=== PATIENT | female | born 1965 | race American Indian/Alaskan Native ===

== ENCOUNTER 2017-05-15 15:03 | Outpatient (CLI) | payer BC ==
--- NOTE | 2017-06-05 12:11 | MMO ---
BILATERAL SCREENING MAMMOGRAMS: Date: 05/15/17 There are no prior exams available. This is a baseline study for this institution. This patient's mammogram was interpreted with the assistance of computer-aided detection. FINDINGS: Heterogeneously dense glandular pattern. There is an area of asymmetric density in the posterior righ t breast seen on MLO view only. Recommend additional right breast exam with diagnostic study to furth er evaluate. IMPRESSION: BIRADS 0: Incomplete: Need Additional Imaging Evaluation and/or Prior Mammograms for Comparison Further imaging of right breast required. The facility will notify the patient of the need for additional imaging services. POS: [facility]
== END 2017-05-15 15:04 | disposition home or self-care (01) ==
LOC: MAMMO 15:03
PROVIDERS: ATTEND Obstetrics & Gynecology
DX: Z12.31 Encounter for screening mammogram for malignant neoplasm of breast (principal)
CPT/HCPCS: 77067; G0202

== ENCOUNTER 2017-05-24 16:16 | Outpatient (CLI) | payer BC ==
[2017-05-24 17:16] LABS: Hematocrit 40.7 % (36.0-47.0); Mean Platelet Volume 7.8 fL (7.4-10.4); Red Blood Cell (RBC) Count 4.51 mill/uL (4.20-5.40); White Blood Cell (WBC) Count 8.2 thou/uL (4.8-10.8)
== END 2017-05-24 16:17 | disposition home or self-care (01) ==
LOC: LABBT 16:16
PROVIDERS: ATTEND Obstetrics & Gynecology
DX: N95.0 Postmenopausal bleeding (principal); D25.9 Leiomyoma of uterus, unspecified
CPT/HCPCS: 85027; 86850; 86900; 86901

== ENCOUNTER 2017-05-24 16:30 | Inpatient (IN) | payer BC ==
--- NOTE | 2017-05-24 06:00 | HP ---
PREOPERATIVE DIAGNOSIS: Abnormal uterine bleeding. PLANNED PROCEDURE: Robotic assisted total laparoscopic hysterectomy with bilateral salpingectomy. HISTORY OF PRESENT ILLNESS: Ms. Cammy Linder is a 52-year-old G2, P2 with a history of anemia, ir regular bleeding with failed medical management. The patient was first seen in our office in of this year with Dr. Dupont with a noted anemia with a hemoglobin of 7.5. The patient has a long h istory of menorrhagia and was at one time considering an ablation versus hysterectomy with a gynecolo gist in [place]. The patient has had a complicated social situation over the last year, has f rom her and lives here now in [place] with her daughter and therefore came to our off ice for continued management of her menstrual concerns. The patient reports being on oral contracept anthony that helped her bleeding for a few months, but eventually her bleeding returned. Prior to her v isit with Dr. Dupont in March she reports bleeding for an entire month, a hemoglobin that dropped a s low as 7.5 and requested definitive surgical management. On my visit with the patient, this month her history was confirmed. Her endometrial biopsy and last Pap smear were negative and her ultrasoun d was reviewed and significant for a uterus that measures approximately 11 x 8 x 8 cm with 2 fundal f ibroids, one appearing submucosal and one most likely intramural. The patient was counseled on her t reatment options again and desired to proceed with definitive surgical management with a hysterectomy . PAST MEDICAL HISTORY: None. PAST SURGICAL HISTORY: Tubal ligation. PREVIOUS OBSTETRICAL HISTORY: Two vaginal deliveries. GYNECOLOGIC HISTORY: Normal Pap smear. No history of abnormal Pap, STD or PID. SOCIAL HISTORY: The patient is currently . 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 She is not a smoker. She does not use drugs or alcohol. ALLERGIES: She has no known allergies or latex allergies. FAMILY HISTORY: Significant for diabetes, otherwise negative. REVIEW OF SYSTEMS: Negative except as stated above. PHYSICAL EXAMINATION: VITAL SIGNS: Blood pressure 110/70, weight 148 pounds, BMI 26.2. GENERAL: No acute distress, alert and oriented, well nourished, well developed. CARDIOVASCULAR: Regular rate and rhythm. LUNGS: Clear to auscultation bilaterally. ABDOMEN: Soft, nontender, no palpable masses, no hepatosplenomegaly, or hernia. GENITOURINARY: Normal external female genitalia, normal urethral meatus. PELVIC: With normal vaginal mucosa, no vaginal discharge. No cervical lesions, no cervical motion t enderness. Uterus on exam enlarged 10-12 weeks size, is mobile and nontender. No adnexal masses. Pe rineum normal appearing. MUSCULOSKELETAL: Grossly normal. NEUROLOGIC: Grossly normal. SKIN: No rashes. LABORATORY DATA: In-office hemoglobin 12.9. Pap smear in 03/2017 normal. ASSESSMENT: Ms. Cammy Linder is a 52-year-old G2, P2 with a history of bilateral tubal ligation, who desires definitive management for abnormal uterine bleeding, most likely related to her fibroid u terus. We discussed alternative treatment options; however, the patient desires definitive managemen t with a hysterectomy. She desires ovarian preservation at the time of her surgery if her ovaries sarah ear normal. Her anemia appears to have resolved with outpatient oral iron therapy and has been instr ucted to continue through the postoperative period. The patient understands the risks of surgery are to include, but not limited to bleeding, infection, damage to intra-abdominal organs or into the pel vis, inability to fully diagnose and treat all conditions at the time of surgery, possible need for e mergent laparotomy, possible need for blood products. She also understands there is an inherent risk of blood clots or complications of anesthesia with any surgery. The patient's questions have been a nswered to her satisfaction and she desires to proceed with the procedure as listed above.
[2017-05-24 16:39] VITALS: BMI 26.2
[2017-05-27] MEDS ORDERED: CEFAZOLIN/Water 2 GM/20 ML SYRINGE ONE ×2 (06:12→07:04)
[2017-05-27] MEDS ORDERED: Ketamine 50 MG/ML VIAL ONE (06:15)
[2017-05-27] MEDS ORDERED: Fentanyl 250 MCG/5 ML VIAL ONE (06:15)
[2017-05-27] MEDS ORDERED: Bupivacaine/Epinephrine 0.25% 30 ML VIAL ONE (06:33)
[2017-05-27] MEDS ORDERED: Midazolam HCl 2 mg/2 ml Vial ONE ×2 (07:09→07:29)
[2017-05-27] MEDS ORDERED: Scopolamine 1.5 mg/72 hour Patch ONE (07:29)
[2017-05-27] MEDS ORDERED: Ondansetron HCl/PF 4 MG/2 ML Vial ONE (07:41)
[2017-05-27] MEDS ORDERED: Glycopyrrolate 0.2 MG/ML 5 ML SYRINGE ONE (07:41)
[2017-05-27] MEDS ORDERED: Lidocaine 1% PF 5 ML VIAL ONE (07:41)
[2017-05-27] MEDS ORDERED: Ketorolac Tromethamine 30 MG/ML VIAL ONE (07:41)
[2017-05-27] MEDS ORDERED: Propofol 200 MG/20 ML VIAL ONE (07:41)
[2017-05-27] MEDS ORDERED: Dexamethasone 20 MG/5 ML VIAL ONE (07:41)
[2017-05-27] MEDS ORDERED: Promethazine HCl 25 MG/ML VIAL SLOW IVP PRN (09:51)
[2017-05-27] MEDS ORDERED: Meperidine HCl/PF 25 MG/ML VIAL SLOW IVP PRN (09:51)
[2017-05-27] MEDS ORDERED: Ondansetron HCl/PF 4 MG/2 ML Vial IVP PRN ×2 (09:51→11:03)
[2017-05-27] MEDS ORDERED: Promethazine HCl 25 MG/ML VIAL IM PRN (09:51)
[2017-05-27] MEDS ORDERED: Simethicone Chewable 80 MG TAB PO PRN (11:03)
[2017-05-27] MEDS ORDERED: Bisacodyl 10 MG SUPP PR PRN (11:03)
[2017-05-27] MEDS ORDERED: Morphine 4 MG/ML Carpuject SLOW IVP PRN (11:03)
[2017-05-27] MEDS ORDERED: Acetaminophen/Codeine 30-300mg Tablet PO PRN ×2 (11:03)
[2017-05-27] MEDS ORDERED: diphenhydrAMINE 25 MG CAP PO PRN (11:03)
[2017-05-27] MEDS ORDERED: Zolpidem Tartrate 5 MG TAB PO PRN (11:03)
--- NOTE | 2017-05-27 11:46 | OP ---
DATE OF PROCEDURE: 05/27/2017 PREOPERATIVE DIAGNOSES: Abnormal uterine bleeding and fibroid uterus. POSTOPERATIVE DIAGNOSES: Abnormal uterine bleeding and fibroid uterus. PROCEDURE PERFORMED: Robotic-assisted total laparoscopic hysterectomy with bilateral salpingectomy and repair of superficial vaginal laceration. SURGEON: Karlos Lea D.O. WINDOWS DESKTOP SUPPORT: Jagdish Dupont M.D. ANESTHESIA: General endotracheal anesthesia per Dr. Zavaleta. COMPLICATIONS: None. ESTIMATED BLOOD LOSS: 75 mL. INTRAOPERATIVE FINDINGS: 1. Enlarged uterus approximately 12 weeks' size with intramural fibroids. 2. Normal appearing fallopian tube segments and ovaries bilaterally. 3. No pelvic adhesive disease. 4. Vaginal mucosa hemostatic after reapproximation of superficial abrasions. PROCEDURE DETAILS: The patient was taken back to the OR with IV fluids running. Once she was in the OR, she was placed in dorsal supine position and general anesthesia was obtained. Once the patient was asleep, she was placed in low dorsal lithotomy position with her arms tucked at her side. The vagina and abdomen were prepped and draped in normal fashion for gynecologic laparoscopy. A Wick catheter was placed into the bladder and drained approximately 75 mL of clear urine. Joanna syringe was placed on the catheter tip for bladder manipulation if needed during the case. An operative speculum was placed into the vagina and the cervix was visualized and grasped with a single tooth tenaculum. The cervix was dilated and sounded easily to 10 cm. A LUCY Catarina manipulator was assembled with a 3.5 cm cup and a 10 cm tip. The uterine manipulator was placed through the vagina into the uterus in the normal fashion. The cervix was noted to abut the colpotomy ring and the vaginal balloon was inflated. The surgeon's gloves were then changed and the attention was turned to the laparoscopic portion of the case. Approximately 2-3 cm above the supraumbilical fold local anesthesia was placed into the skin. A 12 mm incision was made with the scalpel and a Veress needle was placed through this incision into the abdomen. The peritoneal cavity was insufflated without difficulty. The Veress needle was then removed and a trocar was placed through this incision. The laparoscope was then placed through the port with the above findings noted. The patient was then placed in Trendelenburg position. The right and left lower quadrant robotic ports were both placed under direct visualization after injecting local anesthesia into the skin, making 8 mm incisions with the scalpel and placing the trocars then under direct visualization. In similar fashion, the right upper quadrant 11 mm front office assistant port was placed. After all 4 ports were placed, the robotic arms were docked and the instruments entered into the abdominal cavity under direct visualization. The procedure began on the patient's left side with the fallopian tube segment excised with cautery and removed from the surgical field. The utero-ovarian ligament was then cauterized and incised on the patient's left side. The round ligament was cauterized and incised dividing the anterior leaf from the posterior. The anterior leaf was taken down towards the cervicovaginal junction, the uterine artery and posterior branches of the uterine artery were cauterized with the bipolar cautery and incised. The utero- vesical tissue was gently dissected away from the planned colpotomy site and cervix. The bladder flap was created easily and without difficulty. Next, attention was turned to the contralateral side. The right fallopian tube was dissected away from the ovary using cautery and removed from the surgical field. The right utero-ovarian ligament was cauterized and incised, freeing the right ovary from the uterus and allowing it to fall away to the pelvic sidewall. The round ligament was cauterized and divided into anterior and posterior leafs, the uterine artery and accessory branches were skeletonized on the patient's right side, the blood supply were then cauterized and divided. A bladder flap on the patient's right side was dissected towards the contralateral bladder flap. The bladder pushed well away from the planned colpotomy site. At this time of the procedure the attention was turned to performing the colpotomy. The colpotomy began anteriorly and was completed with monopolar scissors. After the anterior colpotomy was completed, attention was turned posteriorly. The posterior colpotomy was completed using monopolar scissors with good visualization. The remaining tissues at 3 and 9 o'clock were taken down with bipolar cautery and then incised with the monopolar scissors with hemostasis throughout the colpotomy portion of the procedure. After the colpotomy was complete, the cervix and uterus were retracted into the vagina. Once the uterus was in the vagina, the pedicles and vaginal cuff were irrigated and suctioned dry. Any small areas of bleeding along the vaginal cuff were controlled with bipolar cautery. The monopolar scissors were replaced with a needle route delivery service driver on the right side. The vaginal cuff was closed with a Stratafix suture in a running locked fashion and closed in 2 layers. There was good hemostasis noted at the vaginal cuff. After the vaginal cuff was closed, it was copiously irrigated again and suctioned dry as well as the pedicles along the pelvic sidewall. No areas of bleeding were noted. The intra -abdominal pressure was dropped to 6 mmHg with no areas of bleeding noted. The ureters were seen bilaterally with vermiculation at the end of the case. The bladder was back filled through the Wick catheter with normal saline and no evidence of leakage was noted and the bladder integrity appeared to be intact. All instruments were removed from the abdomen. The robotic arms were docked and the ports were removed once gas was released from the abdomen. The supraumbilical port fascia was closed with Vicryl suture. All 4 skin incisions were closed with Monocryl suture and dressed with Dermabond dressing. The vagina and the vaginal cuff were then inspected vaginally with an operative speculum placed in the vagina. From the right corner of the cuff angle down along the vaginal sidewall approximately 2 cm in length was a superficial separation of the vaginal mucosa with a small area of bleeding noted. A running suture of 3-0 chromic was placed from the apex of this superficial laceration along the length of it with hemostasis noted. A small vaginal laceration was also noted at the posterior introitus. A series of chromic running sutures reapproximated this tissue as well. Once the vaginal lacerations were repaired and the anatomy was restored. The vaginal cuff and the laceration sites were inspected again and no further bleeding was noted. Wick catheter was placed onto the end of the catheter. The patient was cleaned , dried extubated and taken to the recovery room in good condition. The operative procedure and findings were discussed with the patient's daughter at the end of the case. All questions were answered. JOANN
[2017-05-27] MEDS: Ketorolac Tromethamine 30 MG/ML VIAL IVP SCH ×2 (11:55→18:01)
[2017-05-27] MEDS: Sodium Chloride 0.9% 1,000 ML IV SCH (11:55)
[2017-05-27] MEDS: Ibuprofen 800 MG TAB PO SCH (13:53)
[2017-05-28] MEDS: Ketorolac Tromethamine 30 MG/ML VIAL IVP SCH ×2 (00:38→06:29)
[2017-05-28] MEDS: Sodium Chloride 0.9% 1,000 ML IV SCH ×2 (00:39→05:34)
[2017-05-28] MEDS: Ibuprofen 800 MG TAB PO SCH ×2 (00:42→06:29)
[2017-05-28 05:24] LABS: Hematocrit 33.8 % (36.0-47.0); Mean Platelet Volume 7.9 fL (7.4-10.4); Red Blood Cell (RBC) Count 3.74 mill/uL (4.20-5.40); White Blood Cell (WBC) Count 10.1 thou/uL (4.8-10.8)
[2017-05-28 08:01] VITALS: BP 117/64; TEMP 98.8
--- NOTE | 2017-05-28 10:00 | PDOC.EVN ---
Event Note - Event Note Event Note: POD#1 S: pain minimal, min bleeding yesterday, no NV, tolerating diet O; VSWNL Gen: NAD A and O Chest: nonlabored breathing Abd: non distentded, incision CDI x 4 Tricia: dry pad Ext: no cords UOP: appro [id number] rabago last shift A/P: POD #1 sp SCARLET BS for fibroid uterus and AUB. Plan for DC home later today.
--- NOTE | 2017-05-29 14:07 | DIS ---
DATE OF ADMISSION: 05/27/2017 DATE OF DISCHARGE: 05/28/2017 REASON FOR ADMISSION: Planned robotic assisted total laparoscopic hysterectomy with bilateral salpin gectomy for abnormal uterine bleeding. DISCHARGE DIAGNOSIS: Status post hysterectomy. HOSPITAL COURSE: Ms. Cammy Linder was admitted on 05/27/2017 to undergo a planned robotic assiste d total laparoscopic hysterectomy with bilateral salpingectomy. She underwent the aforementioned pro cedure without difficulty. By postoperative day #1, she was ambulating, tolerating regular diet, voi ding without difficulty and her pain was controlled with oral medications. She was discharged home o n postoperative day #1 in good condition with plans to follow up in the office in 2 weeks and in 6 we eks.
== END 2017-05-28 10:26 | disposition home or self-care (01) | DRG 743 ==
LOC: SURG A 05-27 06:04 → 3SE 05-27 11:01
PROVIDERS: ADMIT Obstetrics & Gynecology; ATTEND Obstetrics & Gynecology
PROC: 0UT94ZZ Resection of Uterus, Percutaneous Endoscopic Approach (ICD-10-PCS; principal; 2017-05-27)
PROC: 0UTC4ZZ Resection of Cervix, Percutaneous Endoscopic Approach (ICD-10-PCS; 2017-05-27)
PROC: 0UB74ZZ Excision of Bilateral Fallopian Tubes, Percutaneous Endoscopic Approach (ICD-10-PCS; 2017-05-27)
PROC: 8E0W4CZ Robotic Assisted Procedure of Trunk Region, Percutaneous Endoscopic Approach (ICD-10-PCS; 2017-05-27)
DX: D25.1 Intramural leiomyoma of uterus (principal); N93.9 Abnormal uterine and vaginal bleeding, unspecified
CPT/HCPCS: 36415; 85027; 88307; J0131; J1100; J1885; J2001; J2250; J2270; J2405; J2704; J3010

== ENCOUNTER 2017-07-17 11:05 | Outpatient (CLI) | payer BC | END 2017-07-17 11:06 | disposition home or self-care (01) | LOC: BICMAMMO 11:05 | PROVIDERS: ATTEND Obstetrics & Gynecology | DX: N63.10 Unspecified lump in the right breast, unspecified quadrant (principal); R92.8 Other abnormal and inconclusive findings on diagnostic imaging of breast | CPT/HCPCS: G0206-RT; G0279 ==

== ENCOUNTER 2022-05-16 15:59 | Outpatient (CLI) | payer BC | END 2022-05-16 16:00 | disposition home or self-care (01) | LOC: BICMAMMO 15:59 | PROVIDERS: ATTEND Family Medicine | DX: Z12.31 Encounter for screening mammogram for malignant neoplasm of breast (principal) | CPT/HCPCS: 77063; 77067 ==

== ENCOUNTER 2024-01-21 13:06 | Outpatient (CLI) | payer BC | END 2024-01-21 13:07 | disposition home or self-care (01) | LOC: BICMAMMO 13:06 | PROVIDERS: ATTEND Family Medicine | DX: Z12.31 Encounter for screening mammogram for malignant neoplasm of breast (principal) | CPT/HCPCS: 77063; 77067 ==